=== PATIENT | female | born 1965 | race Caucasian/White ===

== ENCOUNTER → 2020-06-22 | Day surgery (SDC) | payer OTHER ==
[~2020-06-22] MED LIST: ASPIRIN CHEWABL81 MG PO; ASPIRIN325 MG PO; CIMZIA400 MG/2 M IM; NAPROXEN500 MG PO; NEURONTIN300 MG PO; ONDANSETRON HCL4 MG PO; ONDANSETRON ODT4 MG PO; PERCOCET 5-3251 EACH PO; SUPER B MAXI C0.4 MG PO; SYNTHROID88 MCG PO; TRULANCE3 MG PO; VITAMIN D1000 UNIT PO
== END | disposition home or self-care (01) ==
LOC: FAS 05:45
DX: M76.892 Other specified enthesopathies of left lower limb, excluding foot (principal); Z96.652 Presence of left artificial knee joint; Z20.822 Contact with and (suspected) exposure to COVID-19; Z88.6 Allergy status to analgesic agent; Z88.5 Allergy status to narcotic agent; Z91.048 Other nonmedicinal substance allergy status
CPT/HCPCS: J1885; J2250; J2704; J2795; J7120